=== PATIENT | female | born 1980 | race Caucasian/White ===

== ENCOUNTER 2020-07-17 13:30 | Outpatient (CLI) | payer BC | END 2020-07-17 13:31 | disposition home or self-care (01) | LOC: DTY/OP 13:30 | PROVIDERS: ATTEND Surgery | DX: E66.01 Morbid (severe) obesity due to excess calories (principal) | CPT/HCPCS: 97802 ==

== ENCOUNTER 2020-09-29 16:15 | Outpatient (CLI) | payer BC ==
[2020-09-29 18:29] LABS: #Eosinphils 0.2 10x3/uL (0.0-0.5); #Monocytes 0.7 10x3/uL (0.0-1.1); #Neutrophils 5.3 10x3/uL (1.5-8.4); %Basophils 0.3 % (0.0-2.0); %Eosinophils 1.5 % (0.0-6.0); %Lymphocytes 36.8 % (18.0-47.0); %Neutrophils 54.1 % (40.0-75.0); Hemoglobin 13.5 g/dL (12.0-15.5); Mean Corpuscular HGB CONC 33.2 g/dL (32.0-36.0); Mean Corpuscular Hemoglobin 29.2 pg (27.0-33.0); Mean Corpuscular Volume 88.1 fl (81.6-98.3); Mean Platelet Volume 10.6 fl (7.4-10.4); Platelet Count 316 10x3/uL (150-450); RBC Distribution Width 13.2 % (11.5-14.5); Red Blood Cell (RBC) Count 4.62 10x6/uL (3.90-5.03); White Blood Cell (WBC) Count 9.7 10x3/uL (3.5-10.5)
[2020-09-29 18:38] LABS: BHCG - Serum Negative (NEGATIVE); Pregs Control Background? CLEAR/WHITE (CLR/WHITE); Pregs Control Bar Appear? YES (CONTROL BAR)
[2020-09-29 18:39] LABS: ALT (SGPT) 67 U/L (8-55); AST (SGOT) 49 U/L (5-34); Albumin 4.2 g/dL (3.5-5.0); Alkaline Phosphatase 84 U/L (40-110); Anion Gap 14 mmol/L (10-20); BUN (Urea Nitrogen) 15 mg/dL (7.0-18.7); Bilirubin, Total 0.5 mg/dL (0.2-1.2); Calc. Creatinine Clearance 0 mL/min (70-130); Calcium 9.8 mg/dL (7.8-10.44); Carbon Dioxide 23 mmol/L (22-29); Chloride 105 mmol/L (98-107); Globulin 2.8 g/dL (2.4-3.5); Glucose 93 mg/dL (70-105); Potassium 4.4 mmol/L (3.5-5.1); Sodium 138 mmol/L (136-145)
[2020-09-29 20:42] LABS: Hemoglobin A1c 5.3 % (4.0-6.0)
[2020-09-30 07:46] LABS: SARS-CoV-2 PCR by NAA Not Detected (NotDetected)
== END 2020-09-29 16:16 | disposition home or self-care (01) ==
LOC: LABBT 16:15
PROVIDERS: ATTEND Surgery
DX: Z01.818 Encounter for other preprocedural examination (principal); Z20.822 Contact with and (suspected) exposure to COVID-19
CPT/HCPCS: 71046; 80053; 83036; 84703; 85025; 93005; 93010; U0003; U0005

== ENCOUNTER 2020-09-29 16:30 | Inpatient (IN) | payer BC ==
[2020-12-09] MEDS ORDERED: Heparin 5,000 UNITS/ML VIAL ONE (07:23)
[2020-12-09] MEDS ORDERED: ceFAZolin 2 GM/DEX 5% 100 ML BAG ONE (07:23)
[2020-12-09] MEDS ORDERED: Lidocaine 1% w/Epinephrine 1:100K 20 ML VIAL ONE (08:12)
[2020-12-09] MEDS ORDERED: Bupivacaine 0.25% HCL 30 ML VIAL ONE (08:12)
[2020-12-09] MEDS ORDERED: Fentanyl 100 MCG/2 ML VIAL ONE ×3 (09:08→11:51)
[2020-12-09] MEDS ORDERED: SUGAMMADEX SODIUM 200 MG/2 ML VIAL ONE (09:08)
[2020-12-09] MEDS ORDERED: Famotidine/PF 20 mg/2ml Vial ONE ×2 (09:08→09:17)
[2020-12-09] MEDS ORDERED: PROPOFOL 200 MG/20 ML VIAL ONE (09:28)
[2020-12-09] MEDS ORDERED: ePHEDrine 50 MG/ML VIAL ONE (09:28)
[2020-12-09] MEDS ORDERED: Ondansetron PF 4 MG/2 ML Vial ONE (09:28)
[2020-12-09] MEDS ORDERED: Ketorolac Tromethamine 30 MG/ML VIAL ONE (09:28)
[2020-12-09] MEDS ORDERED: Metoclopramide HCl 10 MG/2 ML VIAL ONE (09:28)
[2020-12-09] MEDS ORDERED: Rocuronium Bromide 10 MG/ML (10ML VIAL) ONE (09:28)
[2020-12-09] MEDS ORDERED: Lidocaine 1% PF 5 ML VIAL ONE (09:28)
[2020-12-09] MEDS ORDERED: Dexamethasone 20 MG/5 ML VIAL ONE (09:28)
[2020-12-09] MEDS ORDERED: PHENYLEPHRINE-NS 100 MCG/ML 10 ML SYRINGE ONE (09:28)
[2020-12-09] MEDS ORDERED: Promethazine HCl 25 MG/ML VIAL ONE (10:56)
[2020-12-09] MEDS ORDERED: Promethazine HCl 25 MG/ML VIAL IVPB PRN (11:00)
[2020-12-09] MEDS ORDERED: Promethazine HCl 25 MG/ML VIAL IM PRN ×3 (11:00→11:36)
[2020-12-09] MEDS ORDERED: Ondansetron HCl/PF 4 MG/2 ML Vial IVP PRN (11:00)
[2020-12-09] MEDS ORDERED: Dextrose 5% in Water 1,000 ML IV PRN (11:24)
[2020-12-09] MEDS ORDERED: hydrALAZINE 20 MG/ML VIAL SLOW IVP PRN (11:24)
[2020-12-09] MEDS ORDERED: Dextrose 50% Abboject 50 ML SYRINGE SLOW IVP PRN (11:24)
[2020-12-09] MEDS ORDERED: diphenhydrAMINE 50 MG/ML VIAL IVP PRN ×2 (11:24→11:36)
[2020-12-09] MEDS ORDERED: Ondansetron PF 4 MG/2 ML Vial IVP PRN ×2 (11:24→11:36)
[2020-12-09] MEDS ORDERED: Hydrocodone-Acetamin 15 ML UDCUP PO PRN (11:24)
[2020-12-09] MEDS ORDERED: Zolpidem Tartrate 5 MG TAB PO PRN (11:36)
[2020-12-09] MEDS ORDERED: fentaNYL Citrate/PF 2,000 MCG in Sodium Chloride 0.9% 60 ML IV PRN (11:36)
[2020-12-09] MEDS ORDERED: Naloxone HCl 0.4 mg/ml Vial IV PRN (11:36)
[2020-12-09] MEDS ORDERED: diphenhydrAMINE 50 MG/ML VIAL IM PRN (11:36)
[2020-12-09] MEDS ORDERED: diphenhydrAMINE 25 MG CAP PO PRN (11:36)
[2020-12-09] MEDS ORDERED: Communication Order-Pharmacy FS SCH (11:45)
[2020-12-09 14:33] VITALS: BMI 37.7
[2020-12-09] MEDS ORDERED: FLU VACC QS2021-22(6MOS UP)/PF 60 MCG/0.5 ML SYRINGE IM ONE (15:45)
[2020-12-09] MEDS: D5 1/2 NS w/20 mEq KCL 1,000 ML IV SCH ×2 (15:53→23:16)
[2020-12-09] MEDS ORDERED: Enoxaparin Sodium 40 MG/0.4 ML SYRINGE SC SCH (21:00)
[2020-12-09] MEDS ORDERED: Propranolol HCl LA 60 MG CAP PO SCH (21:00)
[2020-12-09] MEDS ORDERED: PROPRANOLOL HCL 120 MG PO SCH (21:00)
[2020-12-10 05:51] LABS: #Basophils 0.1 thou/uL (0.0-0.2); #Lymphocytes 3.7 thou/uL (1.20-3.40); #Monocytes 0.9 thou/uL (0.11-0.59); #Neutrophils 12.7 thou/uL (1.40-6.50); %Basophils 0.4 % (0.0-1.0); %Eosinophils 0.1 % (0.0-10.0); %Lymphocytes 21.3 % (21.0-51.0); %Monocytes 5.1 % (0.0-10.0); %Neutrophils 73.1 % (42.0-75.0); Hemoglobin 13.6 g/dL (12.0-16.0); Mean Corpuscular HGB CONC 34.3 g/dL (32.0-36.0); Mean Corpuscular Hemoglobin 30.9 pg (27.0-31.0); Mean Corpuscular Volume 89.9 fL (78.0-98.0); Mean Platelet Volume 8.2 fL (7.4-10.4); Platelet Count 271 thou/uL (130-400); RBC Distribution Width 12.4 % (11.5-14.5); Red Blood Cell (RBC) Count 4.41 mill/uL (4.20-5.40); White Blood Cell (WBC) Count 17.4 thou/uL (4.8-10.8)
[2020-12-10 06:10] LABS: Anion Gap 11 mmol/L (10-20); BUN (Urea Nitrogen) 5 mg/dL (7.0-18.7); Calc. Creatinine Clearance 145 mL/min (70-130); Calcium 9.1 mg/dL (7.8-10.44); Carbon Dioxide 25 mmol/L (22-29); Chloride 105 mmol/L (98-107); Glucose 125 mg/dL (70-105); Potassium 3.8 mmol/L (3.5-5.1); Sodium 137 mmol/L (136-145)
[2020-12-10] MEDS: D5 1/2 NS w/20 mEq KCL 1,000 ML IV SCH ×2 (07:17→10:44)
[2020-12-10 08:17] VITALS: TEMP 98.5
[2020-12-10] MEDS: Hydrocodone-Acetamin 15 ML UDCUP PO PRN ×2 (08:28→12:14)
[2020-12-10] MEDS ORDERED: Pantoprazole 40 MG VIAL IVP SCH (09:00)
[2020-12-10] MEDS ORDERED: Loratadine 10 MG TAB PO SCH (09:00)
[2020-12-10] MEDS ORDERED: Cetirizine HCl 10 MG TAB PO SCH (09:00)
[2020-12-10] MEDS ORDERED: Thyroid 60 MG TAB PO SCH (09:00)
[2020-12-10 12:10] VITALS: BP 118/83
== END 2020-12-10 12:45 | disposition home or self-care (01) | DRG 621 ==
LOC: EDSTATUS 10-02 16:30 → SURG A 12-09 07:01 → SURG B 12-09 12:59
PROVIDERS: ADMIT Surgery; ATTEND Surgery
PROC: 0DB64Z3 Excision of Stomach, Percutaneous Endoscopic Approach, Vertical (ICD-10-PCS; principal; 2020-12-09)
PROC: 0BQT4ZZ Repair Diaphragm, Percutaneous Endoscopic Approach (ICD-10-PCS; 2020-12-09)
PROC: 8E0W4CZ Robotic Assisted Procedure of Trunk Region, Percutaneous Endoscopic Approach (ICD-10-PCS; 2020-12-09)
DX: E66.01 Morbid (severe) obesity due to excess calories (principal); Z20.822 Contact with and (suspected) exposure to COVID-19; I10 Essential (primary) hypertension; K44.9 Diaphragmatic hernia without obstruction or gangrene; H40.9 Unspecified glaucoma; G43.909 Migraine, unspecified, not intractable, without status migrainosus; F41.9 Anxiety disorder, unspecified; J30.2 Other seasonal allergic rhinitis; E03.9 Hypothyroidism, unspecified; M19.90 Unspecified osteoarthritis, unspecified site; F32.A Depression, unspecified; Z68.41 Body mass index [BMI] 40.0-44.9, adult; Z86.16 Personal history of COVID-19; Z79.899 Other long term (current) drug therapy
CPT/HCPCS: 36415; 80048; 85025; 88307; 94760; C9113; J1100; J1644; J1650; J1885; J2405; J2550; J2704; J2765; J3010; J3480; J3490; S0020; S0028

== ENCOUNTER 2020-12-04 16:55 | Outpatient (CLI) | payer BC ==
[2020-12-05 01:42] LABS: SARS-CoV-2 PCR by NAA Not Detected (NotDetected)
== END 2020-12-04 16:56 | disposition home or self-care (01) ==
LOC: LABBT 16:55
PROVIDERS: ATTEND Surgery
DX: Z01.812 Encounter for preprocedural laboratory examination (principal); Z20.822 Contact with and (suspected) exposure to COVID-19
CPT/HCPCS: U0003; U0005